=== PATIENT | male | born 1940 | race Caucasian/White ===

== ENCOUNTER 2023-06-27 19:29 | Emergency (ER) | payer MEDICARE, SELFPAY ==
[2023-06-27] VITALS (8 sets, daily range): BP systolic 145–170; BP diastolic 65–81; PULSE 62–73; RESP 19–20; TEMP 36.7–36.8; O2SAT 92–98; BMI 26.9
--- NOTE | 2023-06-27 19:42 | CT_ITS ---
PROCEDURE INFORMATION: Exam: CT Head Without Contrast Exam date and time: 06/27/2023 8:00 PM Age: 83 years old Clinical indication: Injury or trauma; Fall; Additional info: Fall, facial injury TECHNIQUE: Imaging protocol: Computed tomography of the head without contrast. Radiation optimization: All CT scans at this facility use at least one of these dose optimization techniques: automated exposure control; mA and/or kV adjustment per patient size (includes targeted exams where dose is matched to clinical indication); or iterative reconstruction. COMPARISON: No relevant prior studies available. FINDINGS: Brain: There is age-appropriate cerebral atrophy. Moderate changes of chronic small vessel ischemia within the cerebral white matter regions bilaterally. No acute infarct or hemorrhage. No mass or midline shift. Cerebral ventricles: No ventriculomegaly. Paranasal sinuses: Chronic bilateral maxillary sinus disease. Mastoid air cells: Visualized mastoid air cells are well aerated. Bones/joints: Unremarkable. No acute fracture. Soft tissues: Right forehead and right periorbital region soft tissue swelling. IMPRESSION: 1. No acute intracranial abnormality. 2. Right forehead and right periorbital region soft tissue swelling.
--- NOTE | 2023-06-27 19:42 | CT_ITS ---
PROCEDURE INFORMATION: Exam: CT Maxillofacial Without Contrast Exam date and time: 06/27/2023 8:03 PM Age: 83 years old Clinical indication: Injury or trauma; Fall; Additional info: Fall, facial injury TECHNIQUE: Imaging protocol: Computed tomography of the face without contrast. Radiation optimization: All CT scans at this facility use at least one of these dose optimization techniques: automated exposure control; mA and/or kV adjustment per patient size (includes targeted exams where dose is matched to clinical indication); or iterative reconstruction. COMPARISON: CT HEAD/BRAIN WO CON 06/27/2023 8:00 PM FINDINGS: Orbital cavities: Orbits are normal. Globes are unremarkable. Bones/joints: No evidence of acute osseous abnormality. Paranasal sinuses: Mild polypoid mucoperiosteal thickening of the maxillary sinuses is present. Soft tissues: Right periorbital soft tissue swelling compatible with contusion/hematomas. Vasculature: Moderate calcific atherosclerotic disease of the carotid bulbs. IMPRESSION: 1. Right periorbital soft tissue swelling compatible with contusion/hematomas. 2. No evidence of acute osseous abnormality.
--- NOTE | 2023-06-27 19:42 | XR_ITS ---
PROCEDURE INFORMATION: Exam: XR Right Elbow Exam date and time: 06/27/2023 8:05 PM Age: 83 years old Clinical indication: Pain; Elbow; Right; Additional info: Fall, pain injury TECHNIQUE: Imaging protocol: Radiologic exam of the right elbow. Views: 3 or more views. COMPARISON: No relevant prior studies available. FINDINGS: Bones/joints: Suggestion of a small anterior joint effusion. No displaced fracture or malalignment. Soft tissues: Normal. IMPRESSION: Suggestion of a small anterior joint effusion. While no fracture is definitively identified, an occult radial head fracture can not be excluded.
--- NOTE | 2023-06-27 19:42 | CT_ITS ---
PROCEDURE INFORMATION: Exam: CT Cervical Spine Without Contrast Exam date and time: 06/27/2023 8:05 PM Age: 83 years old Clinical indication: Injury or trauma; Fall; Additional info: Fall, facial injury TECHNIQUE: Imaging protocol: Computed tomography of the cervical spine without contrast. Radiation optimization: All CT scans at this facility use at least one of these dose optimization techniques: automated exposure control; mA and/or kV adjustment per patient size (includes targeted exams where dose is matched to clinical indication); or iterative reconstruction. COMPARISON: CT FACIAL BONES WO CON 06/27/2023 8:03 PM FINDINGS: Bones/joints: No acute fracture. Normal alignment. Severe disc space narrowing at C5-C6. No significant disc bulge or herniation. No severe spinal canal stenosis. Multilevel facet and uncovertebral joint hypertrophy. Mild left-sided bony foraminal stenosis at C2-C3. Mild right-sided bony foraminal stenosis at C3-C4. Moderate left-sided bony foraminal stenosis at C4-C5. Moderate bilateral bony foraminal stenosis at C5-C6. Mild right-sided bony foraminal stenosis at C6-C7. Lungs: Lung apices are normal. Soft tissues: Unremarkable. IMPRESSION: No acute findings.
--- NOTE | 2023-06-27 19:42 | XR_ITS ---
PROCEDURE INFORMATION: Exam: XR Right Knee Exam date and time: 06/27/2023 8:05 PM Age: 83 years old Clinical indication: Pain; Knee; Right; Additional info: Fall, pain injury TECHNIQUE: Imaging protocol: Radiologic exam of the right knee. Views: 3 views. COMPARISON: No relevant prior studies available. FINDINGS: Bones/joints: No acute fracture or malalignment. Few small suspected intra-articular bodies within the posterior knee. No joint effusion. Soft tissues: Apparent thickening of the proximal patellar tendon which may be related to tendinitis. IMPRESSION: No acute osseous findings.
--- NOTE | 2023-06-27 20:04 | PC.NURSE ---
pt to radiology
--- NOTE | 2023-06-27 20:09 | [facility].EDGENADL ---
Discharge Plan Disposition Patient Disposition: Home, Self-Care Condition: Good Referrals Follow up/Referrals: Seymour Peter DO [Staff Physician] - See instructions Provider,Referral, [Primary Care Provider] - See instructions Activity Restrictions/Add. Instructions Additional Instructions/Restrictions: You were evaluated in the emergency department today. At this time, you have what is called an effusion of your right elbow, which could indicate a broken bone that we are not able to see on x-ray at this time. Please keep your splint on, clean, and dry. Do not submerge in any water. I recommend close follow-up with orthopedics. I provided you with the phone number for Dr. Peter. Call their office to schedule an appointment. I recommend seeing him over the next 3 to 5 days. Take Tylenol and ibuprofen at home as needed for pain. Keep your arm elevated to reduce swelling. Ice the area. Follow-up your primary care provider over the next week for reassessment to ensure that you are still doing well. Return for new or worsening symptoms. Clinical Impressions Clinical Impression: Fall, Periorbital ecchymosis, Eyebrow laceration, Effusion of right elbow, Abrasion of knee Instructions Patient Instructions: DI for Elbow Fracture, How to Take Care of Your Splint, DI for Elbow Pain Discharge ED Provider: Rashida Rice General Adult HPI General Chief complaint: Fall Stated complaint: AO02/@1300 fall eye inj Time Seen by Provider: 06/27/23 19:38 Mode of Arrival: Ambulatory Source of Information: Patient Limitations: No Limitations Description of Symptoms (Recalled from ER Triage Doc. by RN): Pt to ED with C/O right elbow, knee, and facial pain from a fall that occurred around 1300 today. Pt states he fell 6in off step, hit face on concrete, and glasses cut eyelid. Pt not on blood thinners. Took 2 tylenol 5:00 pm today. History of Present Illness HPI narrative: This patient is an 83-year-old male who denies significant past medical history presenting to the emergency department with concern for fall. This happened around 1:00 PM today. He states that he was walking on the sidewalk [place] when he fell 6 inches off of the side of a step-off of the pain that he was walking in. He hit the right side of his face, his right elbow, and right knee. He suffered a small laceration to his right elbow, but he states that he was sure it would heal on its own so he did not come in for this. He denies loss of consciousness. He does not take anticoagulation. He states that initially he went home because he thought he was fine, however his right elbow and right knee have been very sore. He is still been able to bear weight but it has been painful. No other concerns noted. He has otherwise been well. Related Data Allergies Allergy/AdvReac Type Severity Reaction Status Date / Time No Known Allergies Allergy Verified 06/27/23 21:07 [facility] Disclaimer: The information contained in this section may have been updated after the patient was seen, as this information can be updated by other users. Social History Smoking Status: Never smoker alcohol intake: never current occupational status: employed and retired Travel in the last 8 weeks: None ROS Obtained: Yes All systems reviewed & no additional complaints except as documented Physical Exam General General appearance: alert and in no apparent distress Head Head exam: other (Right periorbital ecchymosis with a very thin superficial laceration to the right upper eyelid at the base of the eyebrow that is hemostatic and well-approximated) Eye Eye exam: Present normal appearance, PERRL, EOMI and other (Right periorbital ecchymosis) ENT ENT exam: Present normal exam, normal oropharynx, mucous membranes moist and normal external ear exam Neck Neck exam: Present normal inspection, full ROM and trachea midline; Absent tenderness Chest Chest inspection: Present normal inspection and symmetric chest wall rise; Absent tenderness Respiratory Respiratory exam: Present normal lung sounds bilaterally; Absent respiratory distress, wheezes, stridor or accessory muscle use Cardiovascular Cardiovascular exam: Present regular rate and normal rhythm Abdominal Exam Abdominal exam: Present soft; Absent distention, tenderness or guarding Extremities Exam Extremities exam: Present full ROM, tenderness (Patient palpation of the right elbow joint with intact range of motion. Tenderness palpation of the right patella with superficial overlying abrasion. No other bony tenderness. all compartment soft. Neurovascularly intact distally.) and normal capillary refill; Absent edema Back Exam Back exam: Present normal inspection and full ROM; Absent tenderness Neurological Exam Neurological exam: Present alert, oriented X3, CN II-XII intact and normal gait; Absent motor sensory deficit Psychiatric Psychiatric exam: Present normal affect and normal mood Skin Skin exam: Present warm and dry Medical Decision Making Medical Records Medical records reviewed: Yes I reviewed the patient's medical records. Peter Inquiry Pt receiving controlled substance: No Vital Signs: 06/27/23 19:36 06/27/23 22:05 06/27/23 19:34 Temperature 98.0 F 98.2 F Temperature Source Oral Oral Pulse Rate 72 73 Pulse Rate [Left Radial] 70 Respiratory Rate 20 19 Blood Pressure 163/71 H 170/81 H Blood Pressure [Right Arm] 170/81 H Blood Pressure Mean Blood Pressure Mean [Right Arm] 110 Blood Pressure Source Automatic Cuff Blood Pressure Source [Right Arm] Automatic Cuff Blood Pressure Position Sitting 02 Sat by Pulse Oximetry 96 92 L Oxygen Delivery Method Room Air Room Air 06/27/23 20:34 06/27/23 21:00 06/27/23 21:10 Temperature Temperature Source Pulse Rate 63 62 Pulse Rate [Left Radial] Respiratory Rate Blood Pressure 155/74 H 145/74 H 145/67 H Blood Pressure [Right Arm] Blood Pressure Mean 112 Blood Pressure Mean [Right Arm] Blood Pressure Source Blood Pressure Source [Right Arm] Blood Pressure Position 02 Sat by Pulse Oximetry 94 L 96 Oxygen Delivery Method 06/27/23 21:30 06/27/23 22:00 Temperature Temperature Source Pulse Rate Pulse Rate [Left Radial] Respiratory Rate Blood Pressure 145/65 H 151/65 H Blood Pressure [Right Arm] Blood Pressure Mean 91 93 Blood Pressure Mean [Right Arm] Blood Pressure Source Blood Pressure Source [Right Arm] Blood Pressure Position 02 Sat by Pulse Oximetry Oxygen Delivery Method Lab Data Lab results reviewed: Yes I reviewed the patient's lab results. Orders (Tests/Meds): ORDERS Category Date Time Status CT cervical spine wo con Stat Cat Scan 06/27/23 19:[address] facial bones wo con Stat Cat Scan 06/27/23 19:[address] head/brain wo con Stat Cat Scan 06/27/23 19:42 Completed XR elbow RT min 3V Stat Exams 06/27/23 19:42 Completed XR knee RT 3V Stat Exams 06/27/23 19:42 Completed Medical Decision Narrative: In summary, this patient is a 83-year-old male presenting to the Emergency Department for evaluation of facial injury, right elbow injury, and right knee injury after mechanical ground-level fall that happened around 1:00 PM. Differential diagnoses considered include but are not limited to fracture, contusion, intracranial hemorrhage, cervical spine fracture, polytrauma. Ruling out the most morbid conditions drove assessment. On exam, the patient is well-appearing. He has right periorbital ecchymosis, very superficial thin laceration to the right upper lid that is well-approximated and hemostatic, there is palpation of the right elbow without obvious deformity, and tenderness palpation of the right patella with superficial abrasion. Workup included CT head, CT face, CT C-spine, and x-rays of the right elbow and knee. Tdap is already up-to-date per the patient. I independently interpreted x-rays and CT scans prior to the radiologist read and noted right elbow joint effusion without obvious acute fracture or other concern. Please see their read for final interpretation. On reassessment, the patient is resting comfortably. His exam of his right upper extremity is reassuring with tenderness palpation of the right elbow joint but intact range of motion. He is neurovascularly intact. Given that I cannot exclude an subtle radial head fracture, patient was placed in a posterior long-arm splint. He tolerated this well. He remained neurovascularly intact after splinting. At this time, I feel it is appropriate for discharge with close follow-up with orthopedics. I considered laceration repair of the laceration of his right eyebrow, however it is very well-approximated and is hemostatic, so I do not feel that this is indicated. Patient is in agreement with this. He was given instructions for supportive management, instructions for splint care, instructions for close follow-up with Ortho, and strict return precautions. He was discharged in stable condition after all questions were answered. Procedures Risk/Benefits of Procedure(s) Were Explained: Yes Orthopedic Splinting/Casting Injury #1: Side: right Upper Extremity Injury Location: elbow Upper Extremity Immobilizer: posterior splint Other Orthopedic Equipment: other (Sling) Post Cast/Splinting Neuro Status: intact and no change Post Cast/Splinting Vasc Status: intact and no change Critical Care Critical Care Time Critical Care Time: No
--- NOTE | 2023-06-27 20:18 | PC.NURSE ---
pt back from radiology
== END 2023-06-27 22:06 | disposition home or self-care (01) ==
PROVIDERS: Emergency Provider Emergency Medicine
DX: S01.111A Laceration without foreign body of right eyelid and periocular area, initial encounter (principal); S80.211A Abrasion, right knee, initial encounter; M25.421 Effusion, right elbow; G50.1 Atypical facial pain; W10.1XXA Fall (on)(from) sidewalk curb, initial encounter
CPT/HCPCS: 29125; 70450; 70486; 72125; 73080; 73562; 99285